=== PATIENT | female | born 1930 | race Caucasian/White ===

== ENCOUNTER 2018-02-10 15:44 | Inpatient (IN) | payer MEDICARE ==
[2018-02-10 16:22] LABS: Bilirubin Negative (Negative); Blood, Urine Small (Negative); Clarity CLOUDY (Clear); Glucose, Urine (Dipstick) Negative (Negative); Leukocyte Moderate (Negative); Nitrite Positive (Negative); Protein, Urine (Dipstick) Negative (Neg-Trace); Specific Gravity, Urine 1.019 (1.002-1.036); pH, Urine 5.5 (5.0-9.0)
[2018-02-10 16:24] LABS: Pathc Cast-AUWi Flag 2.47 (0-2.49); RBC/HPF 0-3 HPF (0-3); Squamous Epithelial 0-3 HPF (0-3)
[2018-02-10 16:40] LABS: #Eosinphils 0.4 thou/uL (0.0-0.7); #Lymphocytes 1.3 thou/uL (1.20-3.40); #Neutrophils 9.4 thou/uL (1.40-6.50); %Basophils 0.2 % (0.0-1.0); %Eosinophils 3.1 % (0.0-10.0); %Lymphocytes 10.8 % (21.0-51.0); %Monocytes 8.1 % (0.0-10.0); %Neutrophils 77.9 % (42.0-75.0); Hemoglobin 12.8 g/dL (12.0-16.0); Mean Corpuscular HGB CONC 32.2 g/dL (32.0-36.0); Mean Corpuscular Hemoglobin 29.4 pg (27.0-31.0); Mean Corpuscular Volume 91.2 fL (78.0-98.0); Mean Platelet Volume 7.8 fL (7.4-10.4); Platelet Count 461 thou/uL (130-400); RBC Distribution Width 13.2 % (11.5-14.5); Red Blood Cell (RBC) Count 4.36 mill/uL (4.20-5.40); White Blood Cell (WBC) Count 12.1 thou/uL (4.8-10.8)
[2018-02-10 16:43] LABS: Bacteria/HPF 2+ HPF (None Seen); Hyaline Casts/LPF 7-10 HYALINE CAST LPF (0-3 Hyaline); Other Casts/LPF 0-3 COARSE GRAN LPF (0-3 Hyaline)
--- NOTE | 2018-02-10 16:46 | RAD ---
CHEST 1 VIEW: Date: 02/10/18 HISTORY: Altered mental status. Dyspnea. FINDINGS: No comparison. Cardiac silhouette is magnified by projection. Pulmonary vasculature upper limits of normal. Mediasti num is midline. No lobar consolidation or evidence of pneumothorax. cementer leads overlie the chest. Marked elevation of each humeral head in relation to each acromion. IMPRESSION: 1. No active cardiopulmonary abnormalities are demonstrated. 2. Chronic bilateral rotator cuff tears. POS: [facility]
[2018-02-10 16:58] LABS: ALT (SGPT) 15 U/L (8-55); AST (SGOT) 23 U/L (5-34); Albumin 3.1 g/dL (3.4-4.8); Alkaline Phosphatase 123 U/L (40-150); Anion Gap 15 mmol/L (10-20); BUN (Urea Nitrogen) 33 mg/dL (9.8-20.1); Bilirubin, Total 0.5 mg/dL (0.2-1.2); CK (CPK) 196 U/L (29-168); Calc. Creatinine Clearance 0 mL/min (70-130); Calcium 9.1 mg/dL (7.8-10.44); Carbon Dioxide 22 mmol/L (23-31); Chloride 107 mmol/L (98-107); Estimated GFR-MDRD 38; Globulin 4.1 g/dL (2.4-3.5); Glucose 112 mg/dL (83-110); Lipase 22 U/L (8-78); Potassium 3.9 mmol/L (3.5-5.1); Protein, Total 7.2 g/dL (6.0-8.3); Sodium 140 mmol/L (136-145)
[2018-02-10 17:04] LABS: CKMB 2.2 ng/mL (0-6.6); Troponin I 0.019 ng/mL (< 0.028)
--- NOTE | 2018-02-10 18:44 | CT ---
NONCONTRAST CT HEAD: 02/10/2018 HISTORY: Altered mental status. The patient was found lying in urine upon EMS arrival. Increased confusion. COMPARISON: None available. FINDINGS: There is diminished attenuation seen in the periventricular white matter, which is nonspecific but li luigi attributable to chronic small vessel ischemic changes, greater in the left cerebral hemisphere. No acute cortical infarction, hemorrhage, mass effect, or midline shift is seen. There is diffuse c erebral volume loss. The ventricular system does appear enlarged, which is likely related to greater central cerebral atrophy. The visualized paranasal sinuses and mastoid air cells are clear. The ca lvarial structures appear intact. IMPRESSION: 1. No acute intracranial abnormalities demonstrated. 2. Findings likely attributable to chronic small vessel ischemic changes. 3. Cerebral volume loss. POS: [facility]
[2018-02-10] MEDS ORDERED: cefTRIAXone\\ROCEPHIN 1 GM VIAL ONE (19:29)
--- NOTE | 2018-02-10 20:43 | RAD ---
AP VIEW PELVIS: 02/10/2018 HISTORY: Altered mental status. The patient was found lying in urine upon EMS arrival. Trauma. FINDINGS: No fracture is identified. There is mild bilateral sacroiliac joint osteoarthritis present, with deg enerative change in the lower lumbar spine. IMPRESSION: No acute osseous abnormality. POS: [facility]
--- NOTE | 2018-02-10 20:46 | RAD ---
LEFT FOOT THREE VIEWS: 02/10/2018 HISTORY: Altered mental status. Left foot pain. The patient was found lying in urine upon EMS arrival. FINDINGS: There appears to be very slight lateral displacement of the second metatarsal, in relation to the mid dle cuneiform bone, suggesting a Lisfranc injury. No additional fracture or dislocation is seen, but there is osseous bridging between the calcaneous and the cuboid bone. There is generalized lucency throughout the osseous structures of the foot, which could be related to osteoporosis. There is scle rosis and mild deformity with areas of lucency involving the proximal phalanx of the great toe. Overh anging edges are seen and this could be related to gout. No other osseous abnormality. IMPRESSION: 1. Lisfranc injury second metatarsal, likely chronic. Lucencies are seen at base of the second thro ugh third metatarsal bases which may be related to altered mechanics due to Lisfranc injury. 2. Generalized lucency within the osseous structures, probably related to osteoporosis. However, th ere is greater lucency and heterogeneity of the proximal phalanx great toe with suggestion of overha nging edges and overlying skin thickening. Findings are likely related to gout; however, if there is erythema or concern for infection, this finding could be related to osteomyelitis. POS: [facility]
[2018-02-11 00:01] VITALS: BMI 33.5
[2018-02-11] MEDS ORDERED: Acetaminophen 325 MG TAB PO PRN (00:49)
[2018-02-11 06:11] LABS: #Eosinphils 0.5 thou/uL (0.0-0.7); #Lymphocytes 1.1 thou/uL (1.20-3.40); #Monocytes 0.8 thou/uL (0.11-0.59); #Neutrophils 6.9 thou/uL (1.40-6.50); %Basophils 0.3 % (0.0-1.0); %Eosinophils 5.6 % (0.0-10.0); %Lymphocytes 11.3 % (21.0-51.0); %Monocytes 8.7 % (0.0-10.0); %Neutrophils 74.1 % (42.0-75.0); Hemoglobin 11.6 g/dL (12.0-16.0); Mean Corpuscular HGB CONC 32.9 g/dL (32.0-36.0); Mean Corpuscular Hemoglobin 30.1 pg (27.0-31.0); Mean Corpuscular Volume 91.6 fL (78.0-98.0); Mean Platelet Volume 7.5 fL (7.4-10.4); Platelet Count 398 thou/uL (130-400); RBC Distribution Width 13.2 % (11.5-14.5); Red Blood Cell (RBC) Count 3.85 mill/uL (4.20-5.40); White Blood Cell (WBC) Count 9.3 thou/uL (4.8-10.8)
[2018-02-11 06:18] LABS: Anion Gap 11 mmol/L (10-20); BUN (Urea Nitrogen) 35 mg/dL (9.8-20.1); Calc. Creatinine Clearance 51 mL/min (70-130); Calcium 8.7 mg/dL (7.8-10.44); Carbon Dioxide 22 mmol/L (23-31); Chloride 111 mmol/L (98-107); Estimated GFR-MDRD 44; Glucose 110 mg/dL (83-110); Potassium 3.8 mmol/L (3.5-5.1); Sodium 140 mmol/L (136-145)
[2018-02-11] MEDS ORDERED: HYDROcodone/Acetaminophen 5/325 mg Tablet PO PRN (08:58)
[2018-02-11] MEDS ORDERED: Mag-Al 1200 mg/1200 mg/30 ML UDCUP PO PRN (08:58)
[2018-02-11] MEDS ORDERED: Senokot 8.6 MG TAB PO PRN (08:58)
[2018-02-11] MEDS ORDERED: Diabetic Tussin 200 MG/10 ML UDCUP PO PRN (08:58)
[2018-02-11] MEDS ORDERED: Artificial Tears 18 DROP/0.9 ML EA EYE PRN (08:58)
[2018-02-11] MEDS ORDERED: hydrALAZINE 20 MG/ML VIAL SLOW IVP PRN (08:58)
[2018-02-11] MEDS ORDERED: Ondansetron ODT 4 MG TAB PO PRN (08:58)
[2018-02-11] MEDS ORDERED: Ondansetron HCl/PF 4 MG/2 ML Vial IVP PRN (08:58)
[2018-02-11] MEDS ORDERED: Sodium Chloride 0.65% Nasal 44 ML BOT EA NARE PRN (08:58)
[2018-02-11] MEDS ORDERED: Loperamide HCl 2 MG CAP PO PRN (08:58)
[2018-02-11] MEDS ORDERED: Chloraseptic Spray 180 ml Bottle PO PRN (08:58)
[2018-02-11] MEDS ORDERED: Eucerin (Mineral Oil/Petrolatum,White) 30 gm Jar TOP PRN (08:58)
[2018-02-11] MEDS ORDERED: Loratadine 10 MG TAB PO PRN (08:58)
[2018-02-11] MEDS ORDERED: Milk Of Magnesia 30 ML UDCUP PO PRN (08:58)
[2018-02-11] MEDS: Famotidine 20 MG TAB PO SCH ×2 (10:43→21:01)
[2018-02-11] MEDS: Enoxaparin Sodium 40 MG/0.4 ML SYRINGE SC SCH (10:44)
--- NOTE | 2018-02-11 11:19 | HP ---
PRIMARY CARE PHYSICIAN: Dr. Jeremiah Mtz. REASON FOR ADMISSION: Acute encephalopathy, urinary tract infection. HISTORY OF PRESENT ILLNESS: An 87-year-old female who was evaluated by nurse practitioner at the patient's house. The patient appeared increased confused. She was having low grade fever. Patient was prescribed Macrobid for her urinary tract infection for the last couple of weeks, which did not improve her symptoms. Initially, she was alert and oriented, but she was getting more and more confused. Family member was also concerned about. This patient was not able to provide any history, because of her confusion. The patient was having increasing frequency of urination and her urine was foul smelling. When paramedics was called, the patient was found with surrounding urine. Patient also has significant weakness. She is becoming more and more weak. She also had one time fall a couple of days ago without any significant injury, but she had injury to her right little toe. She was hurting in her right foot and that is why x-ray was done in the right foot, which showed chronic changes and osteoporosis changes. She was having intermittent low grade fever at home. The patient by herself is confused, but she denies all questions to no. REVIEW OF SYSTEMS: All review of systems tried to review with the patient, but not reliable and not able to obtain because of altered mental status. PAST MEDICAL HISTORY: Hypertension, dyslipidemia, obesity, dementia. PAST SURGICAL HISTORY: The patient is not able to provide any surgical history. PAST PSYCHIATRIC HISTORY: Unable to provide any previous psychiatric history. SOCIAL HISTORY: The patient lives at home with family. No history of tobacco, alcohol or illicit drug abuse. FAMILY HISTORY: No strong family history of premature CAD, CVA or cancer. ADDITIONAL INFORMATION: I tried to call patient's son, Hernán on phone and tried to get medical information from him as well, but he does not have any significant knowledge about the patient's past surgical history as well as any other medical history. ALLERGIES: No known drug allergy. CURRENT HOME MEDICATIONS: Zoloft 100 mg daily, Macrobid 100 mg twice daily, lisinopril 5 mg p.o. daily, Lasix 20 mg p.o. daily. EMERGENCY ROOM COURSE: Patient is given Rocephin 1 gram. PHYSICAL EXAMINATION: VITAL SIGNS: On arrival, blood pressure 174/89, pulse 74, respiratory rate 20, temperature 98.6, saturation 96% on room air, weight 93 kilograms. GENERAL: Patient is currently alert, awake, confused, no obvious acute distress. HEENT: Head: Normocephalic, atraumatic. Eyes: Pupils round, reactive to light. Extraocular muscle intact. ENT: Oropharynx within normal limits. Moist mucous membranes. No oral lesion, no pharyngeal erythema, no exudate. NECK: Supple, no JVD, no thyromegaly, no carotid bruit. LUNGS: Clear to auscultation without any rhonchi or rales. CARDIAC: S1, S2 regular. No gross murmur noted, no gallop, no rub. ABDOMEN: Obesity present. Bowel sounds present. On deep palpation, no tenderness noted. No suprapubic discomfort, no peritoneal sign, no guarding, no rigidity, no rebound. BACK: No CVA tenderness. EXTREMITIES: Upper extremity, passive movement of all joints are normal. Lower extremity, left fourth toe with a scant amount of scab, little bit ulceration from previous trauma. Left great toe is also deformed. NEUROLOGIC: She is moving all 4 limbs. She is confused. She is able to talk. Her speech is normal. Cerebellar sign negative. Grossly nonfocal examination. SKIN: No skin rash. PSYCHIATRIC: Normal affect. IMAGING: EKG showing sinus arrhythmia, premature supraventricular complexes, left anterior fascicular block. CT brain based on my review, cerebral volume loss, chronic microvascular changes. Chest x-ray based on my review, no acute cardiopulmonary process. Pelvis x-ray, no fracture or dislocation. Foot x-ray showed Lisfranc injury to second metatarsal, likely chronic. Chronic skin changes over the great toe on the left foot. SIGNIFICANT LABORATORY DATA: WBC 12.1, hemoglobin 12.8, platelet 461. BMP: Sodium 140, potassium 3.9, chloride 107, carbon dioxide 22, anion gap 15, BUN 33 , creatinine 1.32, glucose 112, calcium 9.1. Lactic acid 1.7. LFT: AST 23, ALT 15, alkaline phosphatase 123, albumin 3.1, lipase 22, CK 196, CK-MB 2.2, troponin I 0.019. Urinalysis suggestive of urinary tract infection. ASSESSMENT AND PLAN: 1. Sepsis with acute organ dysfunction. This patient has acute encephalopathy , most likely explained by her urinary tract infection and in this way, she meets acute organ dysfunction criteria. She has leukocytosis. 2. Acute encephalopathy, most likely precipitated by urinary tract infection. This patient may have underlying dementia based on cerebral volume loss. We will monitor in hospital. She does not have any focal neurological deficit. The CT brain is negative for any acute process, but she does have chronic ischemic white matter changes and cerebral volume loss. 3. Urinary tract infection, likely related with her age. We will monitor for bladder volume. She has cystitis. We will treat with Rocephin 1 gram q.24 hours and we will follow up on urine culture result. 4. Acute kidney injury. The patient will be given gentle IV fluid with NS at 50 mL per hour only for one bag and then will discontinue IV fluid. We will watch for any fluid overload. 5. History of hypertension. We will try to get medication from her home and then we will start to select her home medication. At this point, blood pressure is marginally fine and we will monitor. 6. Obesity with BMI 33. Dietary education given, weight loss education given. 7. Physical deconditioning. Patient will need PT, OT, and eventually the patient will need [facility] and that is why we will consult pillowcase sewer as well. 8. Deep venous thrombosis prophylaxis. Lovenox 40 mg subcu daily. 9. Gastrointestinal prophylaxis, Pepcid 20 mg p.o. b.i.d. 10. Code status. I spoke with the patient's son, Hernán about code status. At this point, he is not sure about patient's code status. He is not medical power of state attorney. He will discuss with other family member as well and they will back to me tomorrow. Meanwhile, keep as a FULL CODE. Patient's son is surrogate decision maker. Disposition plan based on clinical course. We are expecting she will stay in hospital 3 midnights. She will need placement. We will discontinue telemetry floor and we will transfer her to medical floor. Plan of care was discussed with the patient and patient's son on phone. GOLDIE
[2018-02-11] MEDS: Sodium Chloride 0.9% 1,000 ML IV SCH (13:10)
[2018-02-11] MEDS: cefTRIAXone\\ROCEPHIN 1 GM in Sodium Chloride 0.9% 100 ML IVPB SCH (18:11)
[2018-02-12] MEDS: Sodium Chloride 0.9% 1,000 ML IV SCH (01:13)
[2018-02-12 04:47] LABS: #Eosinphils 0.8 thou/uL (0.0-0.7); #Lymphocytes 1.4 thou/uL (1.20-3.40); #Monocytes 0.8 thou/uL (0.11-0.59); #Neutrophils 7.1 thou/uL (1.40-6.50); %Basophils 0.5 % (0.0-1.0); %Eosinophils 7.7 % (0.0-10.0); %Lymphocytes 13.8 % (21.0-51.0); %Monocytes 8.1 % (0.0-10.0); Hemoglobin 10.5 g/dL (12.0-16.0); Mean Corpuscular HGB CONC 32.3 g/dL (32.0-36.0); Mean Corpuscular Hemoglobin 29.4 pg (27.0-31.0); Mean Platelet Volume 7.6 fL (7.4-10.4); Platelet Count 397 thou/uL (130-400); RBC Distribution Width 13.1 % (11.5-14.5); Red Blood Cell (RBC) Count 3.56 mill/uL (4.20-5.40); White Blood Cell (WBC) Count 10.1 thou/uL (4.8-10.8)
[2018-02-12 05:06] LABS: Anion Gap 10 mmol/L (10-20); BUN (Urea Nitrogen) 39 mg/dL (9.8-20.1); Calc. Creatinine Clearance 51 mL/min (70-130); Calcium 8.2 mg/dL (7.8-10.44); Carbon Dioxide 21 mmol/L (23-31); Chloride 112 mmol/L (98-107); Estimated GFR-MDRD 43; Glucose 112 mg/dL (83-110); Potassium 4.4 mmol/L (3.5-5.1); Sodium 139 mmol/L (136-145)
[2018-02-12] MEDS: Enoxaparin Sodium 40 MG/0.4 ML SYRINGE SC SCH (08:08)
[2018-02-12] MEDS: Famotidine 20 MG TAB PO SCH ×2 (08:08→20:13)
[2018-02-12] MEDS: Saccharomyces boulardii 250 MG CAP PO SCH (08:08)
--- NOTE | 2018-02-12 10:18 | PDOC.PN ---
- Subjective Encounter Start Date: 02/12/18 Encounter Start Time: 08:20 Patient seen and examined. No new complaints. No overnight events - Objective Resuscitation Status: Resuscitation Status FULL:Full Resuscitation MAR Reviewed: Yes Vital Signs & Weight: Vital Signs (12 hours) Temp Pulse Resp BP Pulse Ox 02/12/18 08:00 98.5 F 61 18 02/12/18 07:29 98.5 F 61 18 132/80 97 02/12/18 04:00 98.6 F 64 18 115/69 97 02/12/18 01:20 98.8 F 68 18 102/61 94 L Result Diagrams: 02/12/18 04:16 02/12/18 04:16 Phys Exam - Physical Examination Constitutional: NAD HEENT: PERRLA, moist MMs, sclera anicteric Neck: no JVD, supple Respiratory: no wheezing, no rales, no rhonchi Cardiovascular: RRR, no significant murmur, no rub Gastrointestinal: soft, non-tender, no distention, positive bowel sounds Musculoskeletal: no edema, pulses present Neurological: moves all 4 limbs Lymphatic: no nodes Psychiatric: normal affect Skin: no rash, normal turgor Dx/Plan (1) Encephalopathy acute Code(s): G93.40 - ENCEPHALOPATHY, UNSPECIFIED Status: Acute (2) UTI (urinary tract infection) Status: Acute (3) Acute kidney failure Status: Acute (4) Obesity (BMI 30.0-34.9) Code(s): E66.9 - OBESITY, UNSPECIFIED Status: Acute (5) Dementia Code(s): F03.90 - UNSPECIFIED DEMENTIA WITHOUT BEHAVIORAL DISTURBANCE Status: Acute (6) Physical deconditioning Code(s): R53.81 - OTHER MALAISE Status: Acute (7) Anxiety and depression Code(s): F41.9 - ANXIETY DISORDER, UNSPECIFIED; F32.9 - MAJOR DEPRESSIVE DISORDER, SINGLE EPISODE, UNSPECIFIED Status: Chronic - Plan cont current plan of care, continue antibiotics, PT/OT, social welfare administrator * continue rocephin * follow urine culture * DC IVF * will need SNU placement * selected home medication reconciled * medication reviewed as below * symptomatic treatment Review of Systems - Review of Systems Constitutional: weakness. negative: fever, chills, sweats, malaise, other ENT: negative: Ear Pain, Ear Discharge, Nose Pain, Nose Discharge, Nose Congestion, Mouth Pain, Mouth Swelling, Throat Pain, Throat Swelling, Other Respiratory: negative: Cough, Dry, Shortness of Breath, Hemoptysis, SOB with Excertion, Pleuritic Pain, Sputum, Wheezing Cardiovascular: negative: chest pain, palpitations, orthopnea, paroxysmal nocturnal dyspnea, edema, light headedness, other Gastrointestinal: negative: Nausea, Vomiting, Abdominal Pain, Diarrhea, Constipation, Melena, Hematochezia, Other Genitourinary: negative: Dysuria, Frequency, Incontinence, Hematuria, Retention , Other Musculoskeletal: negative: Neck Pain, Shoulder Pain, Arm Pain, Back Pain, Hand Pain, Leg Pain, Foot Pain, Other Skin: negative: Rash, Lesions, Ced, Bruising, Other Other: not so reliable due to her level of cognitive status - Medications/Allergies Allergies/Adverse Reactions: Allergies Allergy/AdvReac Type Severity Reaction Status Date / Time No Known Allergies Allergy Verified 02/11/18 03:09 Medications: Current Medications Acetaminophen (Tylenol) 650 mg PO Q4H PRN PRN Reason: Headache/Fever or Pain Hydrocodone Bitart/Acetaminophen ([place] 5/325) 1 tab PO Q4H PRN PRN Reason: Moderate Pain (4-6) Al Hydroxide/Mg Hydroxide (Maalox) 30 ml PO Q6H PRN PRN Reason: Heartburn or Indigestion Artificial Tears (Tears Naturale) 0 drop EA EYE PRN PRN PRN Reason: Dry Eyes Enoxaparin Sodium (Lovenox) 40 mg SC 0900 [facility] Last Admin: 02/12/18 08:08 Dose: 40 mg Famotidine (Pepcid) 20 mg PO BID [facility] Last Admin: 02/12/18 08:08 Dose: 20 mg Guaifenesin (Robitussin Sf) 200 mg PO Q4H PRN PRN Reason: Cough Hydralazine HCl (Apresoline) 10 mg SLOW IVP Q4H PRN PRN Reason: Systolic BP > 180 Ceftriaxone Sodium 1 gm/ (Sodium Chloride) 100 mls @ 200 mls/hr IVPB Q24HR [facility] Last Admin: 02/11/18 18:11 Dose: 100 mls Sodium Chloride (Normal Saline 0.9%) 1,000 mls @ 50 mls/hr IV .Q20H [facility] Stop: 02/12/18 10:45 Last Admin: 02/12/18 01:13 Dose: Not Given Loperamide HCl (Imodium) 2 mg PO PRN PRN PRN Reason: Diarrhea/Loose Stools Loratadine (Claritin) 10 mg PO DAILYPRN PRN PRN Reason: Sinus Symptoms Magnesium Hydroxide (Milk Of Magnesium) 30 ml PO DAILYPRN PRN PRN Reason: Constipation Mineral Oil/White Petrolatum (Eucerin Cream) 0 gm TOP BIDPRN PRN PRN Reason: Dry Skin Ondansetron HCl (Zofran Odt) 4 mg PO Q6H PRN PRN Reason: Nausea/Vomiting Ondansetron HCl (Zofran) 4 mg IVP Q6H PRN PRN Reason: Nausea/Vomiting Phenol (Chloraseptic [place] 180 Ml Bot) 0 ml PO PRN PRN PRN Reason: Sore Throat Saccharomyces Boulardii (Florastor) 250 mg PO DAILY [facility] Last Admin: 02/12/18 08:08 Dose: 250 mg Senna (Senokot) 2 tab PO HSPRN PRN PRN Reason: Constipation Sodium Chloride (Flush - Normal Saline) 10 ml IVF Q12HR [facility] Last Admin: 02/12/18 08:19 Dose: 10 ml Sodium Chloride (Flush - Normal Saline) 10 ml IVF PRN PRN PRN Reason: Saline Flush Sodium Chloride ([place] Nasal [place] 0.65%) 0 ml EA NARE QIDPRN PRN PRN Reason: Nasal Congestion
--- NOTE | 2018-02-12 14:31 | PQF ---
DATE: 02-12-18 ATTN: DR. EZEKIEL BAÑUELOS Please exercise your independent, professional judgment in responding to the clarification form. Clinical indicators are provided on the bottom of this form for your review Please check appropriate box(s) to clarify if the following diagnosis has been ruled in or ruled out: ____X SEPSIS WITH ACUTE ORGAN DYSFUNCTION [ X ] Ruled in diagnosis [ ] Continue to treat [ X ] Resolved [ ] Ruled out diagnosis [ ] Other diagnosis [ ] Unable to determine In addition, please specify: Present on Admission (POA): [X ] Yes [ ] No [ ] Unable to determine For continuity of documentation, please document condition throughout progress notes and discharge summary. Thank You. CLINICAL INDICATORS - SIGNS / SYMPTOMS / LABS ER DX: UTI, AMS, FAILED OUTPATIENT TREATMENT H&P: SEPSIS WITH ACUTE ORGAN DYSFUNCTION. THE PATIENT HAS ACUTE ENCEPHALOPATHY, MOST LIKELY EXPLAINED BY HER UTI AND IN THIS WAY, SHE MEETS ACUTE ORGAN DYSFUNCTION CRITERIA. SHE HAS LEUKOCYTOSIS. PN 02-12-18: ACUTE ENCEPHALOPATHY, UTI, HARPREET WBC: 12.1 RISK FACTORS: ER: AMS, CONFUSION H&P: SEPSIS WITH ACUTE ORGAN DYSFUNCTION. THE PATIENT HAS ACUTE ENCEPHALOPATHY, MOST LIKELY EXPLAINED BY HER UTI AND IN THIS WAY, SHE MEETS ACUTE ORGAN DYSFUNCTION CRITERIA. SHE HAS LEUKOCYTOSIS. TREATMENTS: ER: ROCEPHIN MAR: ROCEPHIN, IVF To support diagnosis (This form is maintained as a part of the permanent medical record) 2014 [employer], [employer]. All Rights Reserved [employer]
[2018-02-12] MEDS: cefTRIAXone\\ROCEPHIN 1 GM in Sodium Chloride 0.9% 100 ML IVPB SCH (16:45)
[2018-02-13] MEDS: Famotidine 20 MG TAB PO SCH ×2 (08:50→21:44)
[2018-02-13] MEDS: Saccharomyces boulardii 250 MG CAP PO SCH (08:50)
[2018-02-13] MEDS: Enoxaparin Sodium 40 MG/0.4 ML SYRINGE SC SCH (08:50)
[2018-02-13] MEDS: Lisinopril 5 MG TAB PO SCH (08:50)
--- NOTE | 2018-02-13 12:10 | PDOC.PN ---
- Subjective Encounter Start Date: 02/13/18 Encounter Start Time: 09:00 Patient seen and examined. No new complaints. No overnight events - Objective Resuscitation Status: Resuscitation Status FULL:Full Resuscitation MAR Reviewed: Yes Vital Signs & Weight: Vital Signs (12 hours) Temp Pulse Resp BP BP Pulse Ox 02/13/18 08:50 67 148/61 H 02/13/18 08:00 98.3 F 67 20 97 02/13/18 07:31 98.3 F 67 20 148/61 H 97 Weight Admit Weight 214 lb 3.2 oz Weight 214 lb 3.2 oz I&O: 02/12/18 02/13/18 02/14/18 06:59 06:59 06:59 Intake Total 360 Balance 360 Result Diagrams: 02/12/18 04:16 02/12/18 04:16 Phys Exam - Physical Examination Constitutional: NAD HEENT: PERRLA, moist MMs, sclera anicteric Neck: no JVD, supple Respiratory: no wheezing, no rales, no rhonchi Cardiovascular: RRR, no significant murmur, no rub Gastrointestinal: soft, non-tender, no distention, positive bowel sounds Musculoskeletal: no edema, pulses present Neurological: non-focal, normal sensation Psychiatric: normal affect, A&O x 3 Skin: no rash, normal turgor Dx/Plan (1) Encephalopathy acute Code(s): G93.40 - ENCEPHALOPATHY, UNSPECIFIED Status: Acute (2) UTI (urinary tract infection) Status: Acute (3) Acute kidney failure Status: Acute (4) Obesity (BMI 30.0-34.9) Code(s): E66.9 - OBESITY, UNSPECIFIED Status: Acute (5) Dementia Code(s): F03.90 - UNSPECIFIED DEMENTIA WITHOUT BEHAVIORAL DISTURBANCE Status: Acute (6) Physical deconditioning Code(s): R53.81 - OTHER MALAISE Status: Acute (7) Anxiety and depression Code(s): F41.9 - ANXIETY DISORDER, UNSPECIFIED; F32.9 - MAJOR DEPRESSIVE DISORDER, SINGLE EPISODE, UNSPECIFIED Status: Chronic - Plan cont current plan of care, continue antibiotics, PT/OT, psychologist social * continue rocephin * medication reviewed as below * symptomatic treatment * await placement to SNU * on discharge Cipro. * expecting discharge tomorrow Review of Systems - Review of Systems Eyes: negative: Pain, Vision Change, Conjunctivae Inflammation, Eyelid Inflammation, Redness, Other ENT: negative: Ear Pain, Ear Discharge, Nose Pain, Nose Discharge, Nose Congestion, Mouth Pain, Mouth Swelling, Throat Pain, Throat Swelling, Other Respiratory: negative: Cough, Dry, Shortness of Breath, Hemoptysis, SOB with Excertion, Pleuritic Pain, Sputum, Wheezing Cardiovascular: negative: chest pain, palpitations, orthopnea, paroxysmal nocturnal dyspnea, edema, light headedness, other Gastrointestinal: negative: Nausea, Vomiting, Abdominal Pain, Diarrhea, Constipation, Melena, Hematochezia, Other Genitourinary: negative: Dysuria, Frequency, Incontinence, Hematuria, Retention , Other Musculoskeletal: negative: Neck Pain, Shoulder Pain, Arm Pain, Back Pain, Hand Pain, Leg Pain, Foot Pain, Other - Medications/Allergies Allergies/Adverse Reactions: Allergies Allergy/AdvReac Type Severity Reaction Status Date / Time No Known Allergies Allergy Verified 02/11/18 03:09 Medications: Current Medications Acetaminophen (Tylenol) 650 mg PO Q4H PRN PRN Reason: Headache/Fever or Pain Hydrocodone Bitart/Acetaminophen ([place] 5/325) 1 tab PO Q4H PRN PRN Reason: Moderate Pain (4-6) Al Hydroxide/Mg Hydroxide (Maalox) 30 ml PO Q6H PRN PRN Reason: Heartburn or Indigestion Artificial Tears (Tears Naturale) 0 drop EA EYE PRN PRN PRN Reason: Dry Eyes Enoxaparin Sodium (Lovenox) 40 mg SC 0900 [facility] Last Admin: 02/13/18 08:50 Dose: 40 mg Famotidine (Pepcid) 20 mg PO BID [facility] Last Admin: 02/13/18 08:50 Dose: 20 mg Guaifenesin (Robitussin Sf) 200 mg PO Q4H PRN PRN Reason: Cough Hydralazine HCl (Apresoline) 10 mg SLOW IVP Q4H PRN PRN Reason: Systolic BP > 180 Ceftriaxone Sodium 1 gm/ (Sodium Chloride) 100 mls @ 200 mls/hr IVPB Q24HR [facility] Last Admin: 02/12/18 16:45 Dose: 100 mls Lisinopril (Zestril) 5 mg PO DAILY [facility] Last Admin: 02/13/18 08:50 Dose: 5 mg Loperamide HCl (Imodium) 2 mg PO PRN PRN PRN Reason: Diarrhea/Loose Stools Loratadine (Claritin) 10 mg PO DAILYPRN PRN PRN Reason: Sinus Symptoms Magnesium Hydroxide (Milk Of Magnesium) 30 ml PO DAILYPRN PRN PRN Reason: Constipation Mineral Oil/White Petrolatum (Eucerin Cream) 0 gm TOP BIDPRN PRN PRN Reason: Dry Skin Ondansetron HCl (Zofran Odt) 4 mg PO Q6H PRN PRN Reason: Nausea/Vomiting Ondansetron HCl (Zofran) 4 mg IVP Q6H PRN PRN Reason: Nausea/Vomiting Phenol (Chloraseptic [place] 180 Ml Bot) 0 ml PO PRN PRN PRN Reason: Sore Throat Saccharomyces Boulardii (Florastor) 250 mg PO DAILY [facility] Last Admin: 02/13/18 08:50 Dose: 250 mg Senna (Senokot) 2 tab PO HSPRN PRN PRN Reason: Constipation Sertraline HCl (Zoloft) 100 mg PO DAILY [facility] Last Admin: 02/13/18 08:51 Dose: 100 mg Sodium Chloride (Flush - Normal Saline) 10 ml IVF Q12HR [facility] Last Admin: 02/13/18 08:51 Dose: 10 ml Sodium Chloride (Flush - Normal Saline) 10 ml IVF PRN PRN PRN Reason: Saline Flush Sodium Chloride ([place] Nasal [place] 0.65%) 0 ml EA NARE QIDPRN PRN PRN Reason: Nasal Congestion
[2018-02-13] MEDS: cefTRIAXone\\ROCEPHIN 1 GM in Sodium Chloride 0.9% 100 ML IVPB SCH (16:03)
[2018-02-14] MEDS: Famotidine 20 MG TAB PO SCH (09:36)
[2018-02-14] MEDS: Saccharomyces boulardii 250 MG CAP PO SCH (09:36)
[2018-02-14] MEDS: Enoxaparin Sodium 40 MG/0.4 ML SYRINGE SC SCH (09:36)
[2018-02-14] MEDS: Lisinopril 5 MG TAB PO SCH (09:37)
--- NOTE | 2018-02-14 10:42 | DIS ---
DATE OF ADMISSION: 02/11/2018 DATE OF DISCHARGE: 02/14/2018 PRIMARY CARE PHYSICIAN: Dr. Jeremiah Mtz. DISCHARGE DISPOSITION: [facility] unit. PRIMARY DISCHARGE DIAGNOSES: Sepsis with acute organ dysfunction, sepsis due to urinary tract infect ion, acute encephalopathy and acute kidney failure. SECONDARY DISCHARGE DIAGNOSES: Senile dementia, obesity with body mass index 33, anxiety and depress ion. PRIMARY PROCEDURE/OPERATION: None. RADIOLOGICAL INVESTIGATION: Chest x-ray on admission showed no acute cardiopulmonary process. CT br ain on admission showed age-related atrophy, chronic small vessel ischemic changes without any acute process. Foot x-ray on admission showed Lisfranc injury to second metatarsal, likely chronic osteopo rosis changes, proximal phalanx of the great toe overhanging ages with overlying skin thickening. Th ey reported as suspected osteomyelitis, but clinically patient does not have any appearance of osteom yelitis. There was no tenderness. It was chronic arthritic changes. Pelvis x-ray negative for any fracture or dislocation. SIGNIFICANT LABORATORY DATA: WBC 10.1, hemoglobin 10.5, platelet 397. Sodium 139, potassium 4.4, BU N 39, creatinine 1.18, calcium 8.5. LFT normal. CK 196. Cardiac enzymes negative. Albumin 3.1. U rinalysis suggestive of UTI. Urine culture grew Enterobacter aerogenes and blood culture was negativ e. DISCHARGE MEDICATIONS: Ciprofloxacin 500 mg p.o. twice daily for 7 days, Pepcid 20 mg p.o. b.i.d., L asix 20 mg p.o. daily, lisinopril 5 mg p.o. daily, Florastor 250 mg p.o. daily, Zoloft 100 mg p.o. da alex. CONTRAINDICATIONS: None. CODE STATUS: FULL CODE. INPATIENT CONSULTANTS: None. ALLERGIES: No known drug allergy. DISCHARGE PLAN: Post hospital, patient will follow up with primary care physician. HOSPITAL COURSE: An 87-year-old female who was admitted by me on 02/11/2018, please see my HPI for f urther details. The patient was living at home. She had foul smelling urine and recently primary ca re physician prescribed Macrobid without any clinical improvement. She was day by day getting gradua lly worse and she was becoming more and more confused. On admission she was encephalopathic, but her CT brain was negative for any acute process. She had cerebral volume loss and chronic ischemic whit e matter changes on CT brain without any focal deficit. This patient also had foot x-ray which showed osteoporosis changes, proximal phalanx of the great toe was not clinically consistent with osteomyelitis that was suspected on radiologic report. She had m inor injury to right little toe, which was treated with wound care team while in hospital. We spoke with the family member and they were interested in sending her to rehab for her physical weakness. W isaias in hospital, she was given IV fluid for her acute kidney failure and her renal function improved to normal. She had urine culture positive for Enterobacter, which was resistant to Macrobid and ins tead we started on Cipro upon discharge. While in hospital, she was given Rocephin. By the time of discharge, the patient's renal function improved towards baseline. She is afebrile, t olerating p.o. well. Wound care team saw this patient while in hospital. Patient has weakness and that is why we are sending her to snf home. With help of case demetrius peters, we arranged snf home. The patient is seen and examined at bedside today. REVIEW OF SYSTEMS: Negative with her. PHYSICAL EXAMINATION: VITAL SIGNS: Today, temperature 98.6, pulse 69, blood pressure 146/83, saturation 96% on room air, w eight 214 pounds. GENERAL: The patient is currently alert, awake, no obvious acute distress. HEAD: Normocephalic, atraumatic. EYES: Pupils round, reactive to light. Extraocular muscle intact. ENT: Oropharynx within normal limits. Moist mucous membranes, no oral lesion, no pharyngeal erythem a, no exudate. NECK: Supple. No JVD. LUNGS: Clear to auscultation without any rhonchi or rales. CARDIAC: S1, S2 regular without any murmur. ABDOMEN: Soft and benign without any tenderness. EXTREMITIES: No edema. NEUROLOGIC: Grossly nonfocal examination. Paperwork for discharge done. Discharge medication reconciliation done. Discharge instructions will be given. Total time spent on discharge day 31 minutes.
[2018-02-14 12:27] VITALS: BP 138/66; TEMP 98.3
--- NOTE | 2018-02-14 12:33 | PDOC.PN ---
- Subjective Encounter Start Date: 02/14/18 Encounter Start Time: 10:00 Patient seen and examined. No new complaints. No overnight events - Objective Resuscitation Status: Resuscitation Status FULL:Full Resuscitation MAR Reviewed: Yes Vital Signs & Weight: Vital Signs (12 hours) Temp Pulse Resp BP BP Pulse Ox 02/14/18 12:18 98.3 F 56 L 16 138/66 98 02/14/18 09:37 69 146/83 H 02/14/18 08:00 98.6 F 67 16 95 02/14/18 07:30 98.6 F 67 16 146/83 H 95 Weight Admit Weight 214 lb 3.2 oz Weight 214 lb 3.2 oz I&O: 02/13/18 02/14/18 02/15/18 06:59 06:59 06:59 Intake Total 360 1320 240 Balance 360 1320 240 Result Diagrams: 02/12/18 04:16 02/12/18 04:16 Phys Exam - Physical Examination Constitutional: NAD HEENT: PERRLA, moist MMs, sclera anicteric Neck: no JVD, supple Respiratory: no wheezing, no rales, no rhonchi Cardiovascular: RRR, no significant murmur, no rub Gastrointestinal: soft, non-tender, no distention, positive bowel sounds Musculoskeletal: no edema, pulses present Neurological: non-focal Lymphatic: no nodes Psychiatric: normal affect Skin: no rash, normal turgor Dx/Plan (1) Encephalopathy acute Code(s): G93.40 - ENCEPHALOPATHY, UNSPECIFIED Status: Acute (2) UTI (urinary tract infection) Status: Acute (3) Acute kidney failure Status: Acute (4) Obesity (BMI 30.0-34.9) Code(s): E66.9 - OBESITY, UNSPECIFIED Status: Acute (5) Dementia Code(s): F03.90 - UNSPECIFIED DEMENTIA WITHOUT BEHAVIORAL DISTURBANCE Status: Acute (6) Physical deconditioning Code(s): R53.81 - OTHER MALAISE Status: Acute (7) Anxiety and depression Code(s): F41.9 - ANXIETY DISORDER, UNSPECIFIED; F32.9 - MAJOR DEPRESSIVE DISORDER, SINGLE EPISODE, UNSPECIFIED Status: Chronic - Plan cont current plan of care, continue antibiotics, PT/OT, secondary social studies teacher * medication reviewed as below * symptomatic treatment * cipro * today discharge to [facility] * see discharge rosette. Review of Systems - Review of Systems ENT: negative: Ear Pain, Ear Discharge, Nose Pain, Nose Discharge, Nose Congestion, Mouth Pain, Mouth Swelling, Throat Pain, Throat Swelling, Other Respiratory: negative: Cough, Dry, Shortness of Breath, Hemoptysis, SOB with Excertion, Pleuritic Pain, Sputum, Wheezing Cardiovascular: negative: chest pain, palpitations, orthopnea, paroxysmal nocturnal dyspnea, edema, light headedness, other Gastrointestinal: negative: Nausea, Vomiting, Abdominal Pain, Diarrhea, Constipation, Melena, Hematochezia, Other Genitourinary: negative: Dysuria, Frequency, Incontinence, Hematuria, Retention , Other Musculoskeletal: negative: Neck Pain, Shoulder Pain, Arm Pain, Back Pain, Hand Pain, Leg Pain, Foot Pain, Other - Medications/Allergies Allergies/Adverse Reactions: Allergies Allergy/AdvReac Type Severity Reaction Status Date / Time No Known Allergies Allergy Verified 02/11/18 03:09 Medications: Current Medications Acetaminophen (Tylenol) 650 mg PO Q4H PRN PRN Reason: Headache/Fever or Pain Hydrocodone Bitart/Acetaminophen ([place] 5/325) 1 tab PO Q4H PRN PRN Reason: Moderate Pain (4-6) Al Hydroxide/Mg Hydroxide (Maalox) 30 ml PO Q6H PRN PRN Reason: Heartburn or Indigestion Artificial Tears (Tears Naturale) 0 drop EA EYE PRN PRN PRN Reason: Dry Eyes Enoxaparin Sodium (Lovenox) 40 mg SC 0900 [facility] Last Admin: 02/14/18 09:36 Dose: 40 mg Famotidine (Pepcid) 20 mg PO BID [facility] Last Admin: 02/14/18 09:36 Dose: 20 mg Guaifenesin (Robitussin Sf) 200 mg PO Q4H PRN PRN Reason: Cough Hydralazine HCl (Apresoline) 10 mg SLOW IVP Q4H PRN PRN Reason: Systolic BP > 180 Ceftriaxone Sodium 1 gm/ (Sodium Chloride) 100 mls @ 200 mls/hr IVPB Q24HR [facility] Last Admin: 02/13/18 16:03 Dose: 100 mls Lisinopril (Zestril) 5 mg PO DAILY [facility] Last Admin: 02/14/18 09:37 Dose: 5 mg Loperamide HCl (Imodium) 2 mg PO PRN PRN PRN Reason: Diarrhea/Loose Stools Loratadine (Claritin) 10 mg PO DAILYPRN PRN PRN Reason: Sinus Symptoms Magnesium Hydroxide (Milk Of Magnesium) 30 ml PO DAILYPRN PRN PRN Reason: Constipation Mineral Oil/White Petrolatum (Eucerin Cream) 0 gm TOP BIDPRN PRN PRN Reason: Dry Skin Ondansetron HCl (Zofran Odt) 4 mg PO Q6H PRN PRN Reason: Nausea/Vomiting Ondansetron HCl (Zofran) 4 mg IVP Q6H PRN PRN Reason: Nausea/Vomiting Phenol (Chloraseptic [place] 180 Ml Bot) 0 ml PO PRN PRN PRN Reason: Sore Throat Saccharomyces Boulardii (Florastor) 250 mg PO DAILY [facility] Last Admin: 02/14/18 09:36 Dose: 250 mg Senna (Senokot) 2 tab PO HSPRN PRN PRN Reason: Constipation Sertraline HCl (Zoloft) 100 mg PO DAILY [facility] Last Admin: 02/14/18 09:37 Dose: 100 mg Sodium Chloride (Flush - Normal Saline) 10 ml IVF Q12HR [facility] Last Admin: 02/14/18 09:37 Dose: 10 ml Sodium Chloride (Flush - Normal Saline) 10 ml IVF PRN PRN PRN Reason: Saline Flush Sodium Chloride ([place] Nasal [place] 0.65%) 0 ml EA NARE QIDPRN PRN PRN Reason: Nasal Congestion
== END 2018-02-14 14:43 | DRG 871 ==
LOC: ERS 15:44 → 2NO 20:23 → OBSVTOIN 02-11 08:56 → T4-A 02-11 14:10
PROVIDERS: ADMIT Internal Medicine; ATTEND Internal Medicine
DX: A41.9 Sepsis, unspecified organism (principal); G93.40 Encephalopathy, unspecified; N39.0 Urinary tract infection, site not specified; N17.9 Acute kidney failure, unspecified; F05 Delirium due to known physiological condition; R65.20 Severe sepsis without septic shock; E66.9 Obesity, unspecified; Z68.33 Body mass index [BMI] 33.0-33.9, adult; F41.9 Anxiety disorder, unspecified; F32.9 Major depressive disorder, single episode, unspecified; M81.0 Age-related osteoporosis without current pathological fracture; I10 Essential (primary) hypertension; E78.5 Hyperlipidemia, unspecified
CPT/HCPCS: 36415; 51701; 70450; 71045; 72170; 80048; 80053; 81003; 81015; 82553; 83605; 83690; 84484; 85025; 87040; 87077; 87086; 87186; 93005; 94760; 96374; A4216; A4353; G8978-GP-CM; G8979-GP-CJ; G8987-GO-CM; G8988-GO-CK; J0696; J1650; J7050